=== PATIENT | female | born 1940 | race Caucasian/White ===

== ENCOUNTER 2016-10-30 10:59 | Outpatient (CLI) | payer MEDICARE, OTHER | END 2016-10-30 11:00 | disposition home or self-care (01) | DX: I25.10 Atherosclerotic heart disease of native coronary artery without angina pectoris (principal); R06.02 Shortness of breath; I51.7 Cardiomegaly ==

== ENCOUNTER 2016-11-20 19:05 | Outpatient (CLI) | payer MEDICARE, OTHER | END 2016-11-20 19:06 | disposition home or self-care (01) | DX: M79.605 Pain in left leg (principal); R60.0 Localized edema ==

== ENCOUNTER 2016-12-04 14:24 | Outpatient (CLI) | payer MEDICARE, OTHER ==
[2016-12-04 15:32] LABS: CREATININE 0.9 mg/dL (0.4-1.0); PHOSPHORUS 4.4 mg/dL (2.5-4.6); POTASSIUM 3.4 mmol/L (3.5-5.0)
== END 2016-12-04 14:25 | disposition home or self-care (01) ==
LOC: LAB 14:24
PROVIDERS: ATTEND Internal Medicine Cardiovascular Disease
DX: I10 Essential (primary) hypertension (principal)
CPT/HCPCS: 36415; 80069

== ENCOUNTER 2016-12-24 10:27 | Outpatient (CLI) | payer MEDICARE, OTHER ==
[2016-12-24 13:07] LABS: INR 1.1 (0.8-1.2); PT - PROTHROMBIN TIME 12.1 secs (9.9-12.6)
[2016-12-24 13:14] LABS: PARTIAL THROMBOPLASTIN TIME 29.5 secs (24.9-33.3)
[2016-12-24 13:22] LABS: BASOPHILS % (AUTO) 0.8 %; EOSINOPHILS # (AUTO) 0.2 10^3/uL (0.0-0.7); EOSINOPHILS % (AUTO) 4.2 %; HCT - HEMATOCRIT 42.9 % (37.0-47.0); HGB - HEMOGLOBIN 14.4 g/dL (12.0-16.0); LYMPHOCYTES # (AUTO) 1.1 10^3/uL (1.5-3.5); LYMPHOCYTES % (AUTO) 27.4 %; MEAN CORPUSCULAR HEMOGLOBIN 28.8 pg (27.0-31.0); MEAN CORPUSCULAR HGB CONC 33.6 g/dL (32.0-36.0); MEAN CORPUSCULAR VOLUME 85.7 fL (81.0-99.0); MEAN PLATELET VOLUME 11.6 fL (7.9-10.8); MONOCYTES # (AUTO) 0.5 10^3/uL (0.0-1.0); MONOCYTES % (AUTO) 11.3 %; NEUTROPHILS # (AUTO) 2.3 10^3/uL (1.5-6.6); NEUTROPHILS % (AUTO) 56.3 %; NUCLEATED RED BLOOD CELLS AUTO 0.1 /100WBC; RED BLOOD COUNT 5.01 10^6/uL (4.20-5.40); RED CELL DISTRIBUTION WIDTH 15.8 % (12.0-15.0); UNCORRECTED WHITE BLOOD COUNT 4.1 x10^3/uL; WHITE BLOOD COUNT 4.1 x10^3/uL (4.8-10.8)
[2016-12-24 13:33] LABS: CALCIUM 9.5 mg/dL (8.5-10.3); CREATININE 0.8 mg/dL (0.4-1.0); PHOSPHORUS 4.3 mg/dL (2.5-4.6); POTASSIUM 3.7 mmol/L (3.5-5.0)
== END 2016-12-24 10:28 | disposition home or self-care (01) ==
LOC: LAB.N 10:27
PROVIDERS: ATTEND Internal Medicine Cardiovascular Disease
DX: I10 Essential (primary) hypertension (principal); I25.118 Atherosclerotic heart disease of native coronary artery with other forms of angina pectoris; R06.02 Shortness of breath; E78.5 Hyperlipidemia, unspecified
CPT/HCPCS: 36415; 80069; 85025; 85610; 85730

== ENCOUNTER 2017-02-16 13:01 | Outpatient (CLI) | payer MEDICARE, OTHER | END 2017-02-16 13:02 | disposition home or self-care (01) | LOC: SC 13:01 | PROVIDERS: ATTEND Internal Medicine Pulmonary Disease | DX: G47.10 Hypersomnia, unspecified (principal); R06.83 Snoring; G47.8 Other sleep disorders | CPT/HCPCS: 99203; G0463; 99212 ==

== ENCOUNTER 2017-03-13 19:26 | Outpatient (CLI) | payer MEDICARE, OTHER | END 2017-03-13 19:27 | disposition home or self-care (01) | LOC: SC 19:26 | PROVIDERS: ATTEND Internal Medicine Pulmonary Disease | DX: G47.33 Obstructive sleep apnea (adult) (pediatric) (principal); G47.61 Periodic limb movement disorder | CPT/HCPCS: 95810 ==

== ENCOUNTER 2017-03-15 13:58 | Outpatient (CLI) | payer MEDICARE, OTHER ==
--- NOTE | 2017-03-16 17:22 | Mammography Report ---
DIGITAL SCREENING MAMMOGRAM: 03/15/2017 CLINICAL INDICATION: A 76-year-old with personal history of right breast cancer status post lumpecto my and radiation therapy, family history of breast cancer. COMPARISON: 02/2016, 12/2014, 12/2013, 12/2012, 10/2011, 10/2010, 08/2009. TECHNIQUE: Routine CC and MLO projections were obtained of the breasts. The breasts demonstrate scattered fibroglandular densities bilaterally. Postoperative and post-treat ment changes in the right breast are stable. Coarse and punctate, typically benign calcifications ar e present. No suspicious masses, clustered microcalcifications, or regions of architectural distorti on are identified. IMPRESSION: BENIGN FINDINGS. RECOMMENDATION: ROUTINE ANNUAL SCREENING UNLESS OTHERWISE CLINICALLY INDICATED. BIRADS CATEGORY: 2, BENIGN FINDINGS. STANDARD QUALIFYING STATEMENTS 1. This examination was reviewed with the aid of Computed-Aided Detection (CAD). 2. A negative or benign imaging report should not delay biopsy if clinically suspicious findings are present. Consider surgical consultation if warranted. More than 5% of cancers are not identified b y imaging. 3. Dense breasts may obscure an underlying neoplasm. :9 JOB #: [id number] EXT JOB #:[id number]
== END 2017-03-15 13:59 | disposition home or self-care (01) ==
LOC: DI 13:58
PROVIDERS: ATTEND Specialist
DX: Z12.31 Encounter for screening mammogram for malignant neoplasm of breast (principal); Z08 Encounter for follow-up examination after completed treatment for malignant neoplasm; Z85.3 Personal history of malignant neoplasm of breast; Z80.3 Family history of malignant neoplasm of breast
CPT/HCPCS: 77067

== ENCOUNTER 2017-04-06 14:26 | Outpatient (CLI) | payer MEDICARE, OTHER | END 2017-04-06 14:27 | disposition home or self-care (01) | LOC: SC 14:26 | PROVIDERS: ATTEND Internal Medicine Pulmonary Disease | DX: G47.33 Obstructive sleep apnea (adult) (pediatric) (principal) | CPT/HCPCS: 99213; G0463; 99212 ==

== ENCOUNTER 2017-05-21 22:22 | Outpatient (CLI) | payer MEDICARE, OTHER | END 2017-05-21 22:23 | disposition home or self-care (01) | LOC: SC 22:22 | PROVIDERS: ATTEND Internal Medicine Pulmonary Disease | DX: G47.33 Obstructive sleep apnea (adult) (pediatric) (principal); Z68.35 Body mass index [BMI] 35.0-35.9, adult | CPT/HCPCS: 95811 ==

== ENCOUNTER 2017-06-14 14:03 | Outpatient (CLI) | payer MEDICARE, OTHER | END 2017-06-14 14:04 | disposition home or self-care (01) | LOC: SC 14:03 | PROVIDERS: ATTEND Internal Medicine Pulmonary Disease | DX: G47.33 Obstructive sleep apnea (adult) (pediatric) (principal) | CPT/HCPCS: 99213; G0463; 99212 ==

== ENCOUNTER 2018-05-05 11:29 | Outpatient (CLI) | payer MEDICARE, OTHER ==
--- NOTE | 2018-05-06 10:22 | Mammography Report ---
Reason: SCREENING MAMMO Procedure Date: 05/05/2018 Accession Number: [id number] / [id number] Procedure: [facility] - Screening Mammo w/Jcarlos CPT Code: FULL RESULT: EXAM: Screening Mammo w/Jcarlos DATE: 05/05/2018 12:09 PM CLINICAL HISTORY: Status post right lumpectomy with radiation and chemotherapy TECHNIQUE: Bilateral CC and MLO views were obtained. COMPARISON: 03/15/2017, 03/10/2016, 01/07/2015, and 01/05/2014 FINDINGS: There are scattered fibroglandular densities. Surgical clips and postsurgical architectural distortion right breast as before. No suspicious masses, clustered microcalcifications, or new regions of architectural distortion are identified. IMPRESSION: Benign findings RECOMMENDATION: Routine annual screening unless otherwise clinically indicated. BIRADS CATEGORY 2: Benign findings STANDARD QUALIFYING STATEMENTS: 1. This examination was not reviewed with the aid of Computer-Aided Detection (CAD). 2. A negative or benign imaging report should not delay biopsy if clinically suspicious findings are present. Consider surgical consultation if warrented. More than 5% of cancers are not identified by imaging. 3. Dense breasts may obscure an underlying neoplasm. 4. This examination was reviewed with the aid of 3D breast imaging (tomosynthesis).
== END 2018-05-05 11:30 | disposition home or self-care (01) ==
LOC: DI 11:29
PROVIDERS: ATTEND Internal Medicine
DX: Z12.31 Encounter for screening mammogram for malignant neoplasm of breast (principal); Z08 Encounter for follow-up examination after completed treatment for malignant neoplasm; Z85.3 Personal history of malignant neoplasm of breast
CPT/HCPCS: 77063; 77067

== ENCOUNTER 2018-08-04 11:03 | Outpatient (CLI) | payer MEDICARE, OTHER | END 2018-08-04 11:04 | disposition home or self-care (01) | LOC: SC 11:03 | PROVIDERS: ATTEND Nurse Practitioner Family | DX: G47.33 Obstructive sleep apnea (adult) (pediatric) (principal); R03.0 Elevated blood-pressure reading, without diagnosis of hypertension | CPT/HCPCS: 99214; G0463; 99212 ==

== ENCOUNTER 2018-09-07 08:00 | Outpatient (CLI) | payer MEDICARE, OTHER ==
[2018-09-07 20:18] LABS: CALCIUM 9.1 mg/dL (8.5-10.3); CREATININE 0.9 mg/dL (0.4-1.0)
== END 2018-09-07 23:59 ==
LOC: LAB.N 08:00
PROVIDERS: ATTEND Internal Medicine Cardiovascular Disease
DX: I10 Essential (primary) hypertension (principal)
CPT/HCPCS: 36415; 80048

== ENCOUNTER 2018-12-01 06:25 | Day surgery (SDC) | payer MEDICARE, OTHER ==
[2018-12-01] MEDS ORDERED: PROPARACAINE 0.5% OPHTH DROPS 15 ML LEFTEYE ONE ×2 (06:48→08:01)
[2018-12-01] MEDS ORDERED: PHENYLEPHRINE 2.5% OPHTH 2 ML DROPS LEFTEYE ONE (06:48)
[2018-12-01] MEDS ORDERED: CYCLOPENTOLATE 1% OPHTH DROPS 2 ML LEFTEYE ONE (06:48)
[2018-12-01] MEDS ORDERED: LACTATED RINGERS 500 ML IV ONE (06:48)
[2018-12-01] MEDS ORDERED: KETOROLAC 0.45% OPHTH DROPS LEFTEYE ONE (06:48)
[2018-12-01] MEDS ORDERED: BRIMONIDINE 0.2% OPHTH DROPS 5 ML ONE (07:03)
[2018-12-01] MEDS ORDERED: TRIAMCIN/MOXIFLOX OPHTHALMIC 0.6 ML VIAL IO ONE (07:03)
[2018-12-01] MEDS ORDERED: TIMOLOL 0.5% OPHTH DROPS ONE (07:03)
[2018-12-01] MEDS ORDERED: VANCOMYCIN OPHTHALMI 8MG/0.8ML 8 MG/0.8 ML SYRINGE IO ONE (07:04)
--- NOTE | 2018-12-01 07:18 | ANESTHESIA ---
Pre-Anesthesia VS, & Labs - Diagnosis left nuclear sclerotic cataract - Procedure left extraction cataract with lens implant Vital Signs: Temp Pulse Resp BP Pulse Ox 36.9 C 66 18 149/69 H 96 12/01/18 06:40 12/01/18 06:40 12/01/18 06:40 12/01/18 06:40 12/01/18 06:40 Height 5 ft 3 in Weight (kg) 112 kg Body Mass Index 36.8 - NPO >8 hours - Is Patient ?: Not Applicable Home Medications and Allergies Home Medications: Ambulatory Orders Chlorthalidone 1 tab PO DAILY 12/01/18 Isosorbide Mononitrate ER [Imdur] 30 mg PO DAILY 12/01/18 Losartan [Cozaar] 50 mg PO DAILY 12/01/18 Cetirizine [ZyrTEC] 10 mg PO DAILY 12/19/12 Cholecalciferol (Vitamin D3) [Vitamin D] 1,000 unit PO DAILY 12/19/12 Pregabalin [Lyrica] 100 mg PO BID 12/19/12 Ascorbic Acid [Vitamin C] 1,000 mg PO DAILY 06/21/13 Calcium Crb,Cit/D3/Min34/Edi [Citracal + Bone Density Tablet] 1 each PO DAILY 06/21/13 Multivitamin [Multivitamins] 1 each PO DAILY 06/21/13 Atorvastatin Calcium [Lipitor] 40 mg PO DAILY 12/20/13 Krill Oil 500 mg PO DAILY 12/20/13 Solifenacin Succinate [Vesicare] 10 mg PO DAILY 12/20/13 Acetaminophen [Tylenol Extra Strength] 1 tab PO PRN PRN 06/23/17 Aspirin [Aspirin EC] 2 tab PO DAILY 06/23/17 Fluticasone [Flonase] 1 spray INH BID 06/23/17 Metoprolol Succinate [Toprol Xl] 1 tab PO DAILY 06/23/17 Metronidazole [Metrocream] 0 gm TOP BID 06/23/17 Pantoprazole Sodium 1 mg PO DAILY 06/23/17 Psyllium Seed (with Sugar) [Metamucil Powder] 2 tsp PO DAILY 06/23/17 Nitroglycerin 1 tab SL PRN PRN 03/23/18 Chlorthalidone 1 tab PO DAILY 12/01/18 Isosorbide Mononitrate ER [Imdur] 30 mg PO DAILY 12/01/18 Losartan [Cozaar] 50 mg PO DAILY 12/01/18 Allergies/Adverse Reactions: Allergies Allergy/AdvReac Type Severity Reaction Status Date / Time codeine [Codeine] AdvReac Nausea Verified 12/01/18 06:40 hydromorphone HCl * AdvReac Nausea Verified 12/01/18 06:40 [From Dilaudid] Anes History & Medical History - Anesthetic History Anesthesia Complications: reports: No previous complications Family history of Anesthesia Complications: Denies Family history of Malignant Hyperthermia: Denies - Medical History Cardiovascular: reports: Hypertension, High cholesterol, Coronary artery disease, [place] Pulmonary: reports: Sleep apnea, CPAP use Gastrointestinal: reports: Ulcers, Colon polyps, Other Urinary: reports: Incontinence Musculoskeletal: reports: Osteoarthritis, Fibromyalgia, Chronic back pain Endocrine/Autoimmune: reports: None Skin: reports: None - Surgical History General: Colonoscopy Eyes Ears Nose Throat (EENT): Tonsil/Adenoidectomy Urologic: Bladder surgery Gynecologic: Hysterectomy Orthopedic: Knee replacement, Carpal Tunnel surgery, Spine surgery, Other Dermatologic: Skin cancer surgery Exam General: Alert, Oriented x3, Cooperative, No acute distress Dental: Other (caps) Mouth Openin Fingerbreadth Neck Mobility: Reduced Mallampati classification: II Thyromental Distance: 4-6 cm Respiratory: Lungs clear, Normal breath sounds, No respiratory distress, No accessory muscle use Cardiovascular: Normal S1, Normal S2 Mental/Cognitive Status: Alert/Oriented X3, Normal for patient Plan Anesthesia Type: MAC Consent for Procedure(s) Verified and Reviewed: Yes Code Status: Attempt Resuscitation ASA classification: 2-Mild systemic disease Is this case an emergency?: No
[2018-12-01] MEDS ORDERED: MIDAZOLAM 2 MG/2 ML VIAL IVP ONE (08:00)
[2018-12-01] MEDS ORDERED: BRIMONIDINE 0.2% OPHTH DROPS 5 ML OPTH ONE (08:08)
[2018-12-01] MEDS ORDERED: EPINEPHrine 1 MG/ML AMP IVP ONE (08:08)
[2018-12-01] MEDS ORDERED: CHONDR SULF/HYALURONATE SYRINGE IO ONE (08:09)
[2018-12-01] MEDS ORDERED: BSS/LIDOCAINE/EPINEPHRINE 1 ML SYRINGE IO ONE (08:09)
[2018-12-01] MEDS ORDERED: TIMOLOL 0.5% OPHTH DROPS OPTH ONE (08:09)
[2018-12-01 08:30] VITALS: BP 144/57
--- NOTE | 2018-12-01 09:35 | PROCEDURE REPORT ---
DATE OF SERVICE: 12/01/2018 Physician: Alfred Nguyen MD PREOPERATIVE DIAGNOSIS: Visually significant cataract, left eye. This was her first cataract surgery. POSTOPERATIVE DIAGNOSIS: Visually significant cataract, left eye. PROCEDURE: Phacoemulsification with posterior chamber intraocular lens implant, left eye. SURGEON: Dr. Alfred Nguyen. ANESTHESIA: Monitored anesthesia care. COMPLICATIONS: None. OPERATIVE INDICATIONS: This is an 78-year-old woman with progressive vision loss in the left eye due to 2+ nuclear sclerotic cataract. Best corrected visual acuity was 20/40 with glare to 20/70 in the left eye. Indications for surgery were overall decrease in vision, difficulty seeing words on a computer screen , difficulty reading, difficulty seeing words, closed captions, or game scores on TV, difficulty seei ng street signs, difficulty driving at low light or at night, difficulty driving at night because of headlights from other vehicles, and difficulty with glare or bright lights in any situation. She was consented at length concerning risks and benefits of cataract surgery, after which she expressed a d esire to proceed with surgery. OPERATIVE PROCEDURE: Patient was taken into OR #3 and placed under monitored anesthesia care. A ausitn gical timeout was conducted, confirming correct patient, correct procedure, and correct surgical site . She was given topical anesthesia, then prepped and draped in the usual sterile fashion. The eye was entered at the 6 and 3 o'clock positions. Intracameral Shugarcaine was injected into the anterior chamber, followed by Viscoat. A continuous-tear curvilinear capsulorrhexis was performed. The nucleus was hydrodissected and phacoemulsified. The cortex was evacuated using automated infusi on and aspiration. Provisc was injected in the capsular bag, and an 18.5 diopter intraocular lens in serted in the bag. Approximately 0.8 mL of a mixture of triamcinolone, moxifloxacin, and vancomycin was injected subconjunctivally in the superior quadrant for infection and inflammation prophylaxis. I and A was used to evacuate the viscoelastic materials. The eye was inflated to physiologic pressur e using a balanced salt solution and found to be watertight. Patient was taken from the operating room in good condition and given postoperative instructions. TD: 12/01/2018 08:30
== END 2018-12-01 06:26 | disposition home or self-care (01) ==
LOC: SDS 06:25
PROVIDERS: ATTEND Ophthalmology
PROC: 08RK3JZ Replacement of Left Lens with Synthetic Substitute, Percutaneous Approach (ICD-10-PCS; principal; 2018-12-01 08:00)
DX: H25.12 Age-related nuclear cataract, left eye (principal); G47.33 Obstructive sleep apnea (adult) (pediatric); I10 Essential (primary) hypertension; E78.00 Pure hypercholesterolemia, unspecified
CPT/HCPCS: 66984; A9270; V2632

== ENCOUNTER 2019-01-12 09:19 | Day surgery (SDC) | payer MEDICARE, OTHER ==
[~2019-01-12 09:19] MED LIST: CYCLOPENTOLATE 1% OPHTH DROPS 2 ML ONE; KETOROLAC 0.45% OPHTH DROPS ONE; PHENYLEPHRINE 2.5% OPHTH 2 ML DROPS ONE; PROPARACAINE 0.5% OPHTH DROPS 15 ML ONE
[2019-01-12] MEDS ORDERED: PHENYLEPHRINE 2.5% OPHTH 2 ML DROPS RIGHTEYE ONE (09:52)
[2019-01-12] MEDS ORDERED: CYCLOPENTOLATE 1% OPHTH DROPS 2 ML RIGHTEYE ONE (09:52)
[2019-01-12] MEDS ORDERED: KETOROLAC 0.45% OPHTH DROPS RIGHTEYE ONE (09:52)
[2019-01-12] MEDS ORDERED: PROPARACAINE 0.5% OPHTH DROPS 15 ML RIGHTEYE ONE ×2 (09:52→10:55)
[2019-01-12] MEDS ORDERED: LACTATED RINGERS 500 ML IV ONE (09:54)
--- NOTE | 2019-01-12 10:43 | ANESTHESIA ---
Pre-Anesthesia VS, & Labs <Shay Tyler - Last Filed: 01/12/19 10:08> - NPO >8 hours - Is Patient ?: Not Applicable <Bassem Jacobs - Last Filed: 01/12/19 10:48> - Diagnosis R eye nuclear sclerotic cataract (Shay Tyler) - Procedure right extraction cataract with lens implant (Bassem Jacobs) Vital Signs: Temp Pulse Resp BP Pulse Ox 36.6 C 69 16 154/89 H 96 01/12/19 09:54 01/12/19 09:54 01/12/19 09:54 01/12/19 09:54 01/12/19 09:54 Height 5 ft 3 in Weight (kg) 114.4 kg Body Mass Index 36.8 Home Medications and Allergies <Shay Tyler - Last Filed: 01/12/19 10:08> <Bassem Jacobs - Last Filed: 01/12/19 10:48> Cetirizine [ZyrTEC] 10 mg PO DAILY 12/19/12 Cholecalciferol (Vitamin D3) [Vitamin D] 1,000 unit PO DAILY 12/19/12 Pregabalin [Lyrica] 100 mg PO BID 12/19/12 Ascorbic Acid [Vitamin C] 1,000 mg PO DAILY 06/21/13 Calcium Crb,Cit/D3/Min34/Edi [Citracal + Bone Density Tablet] 1 each PO DAILY 06/21/13 Multivitamin [Multivitamins] 1 each PO DAILY 06/21/13 Atorvastatin Calcium [Lipitor] 40 mg PO DAILY 12/20/13 Krill Oil 500 mg PO DAILY 12/20/13 Solifenacin Succinate [Vesicare] 10 mg PO DAILY 12/20/13 Acetaminophen [Tylenol Extra Strength] 1 tab PO PRN PRN 06/23/17 Aspirin [Aspirin EC] 2 tab PO DAILY 06/23/17 Fluticasone [Flonase] 1 spray INH BID 06/23/17 Metoprolol Succinate [Toprol Xl] 1 tab PO DAILY 06/23/17 Metronidazole [Metrocream] 0 gm TOP BID 06/23/17 Pantoprazole Sodium 1 mg PO DAILY 06/23/17 Psyllium Seed (with Sugar) [Metamucil Powder] 2 tsp PO DAILY 06/23/17 Nitroglycerin 1 tab SL PRN PRN 03/23/18 Chlorthalidone 1 tab PO DAILY 12/01/18 Isosorbide Mononitrate ER [Imdur] 30 mg PO DAILY 12/01/18 Losartan [Cozaar] 50 mg PO DAILY 12/01/18 Allergies/Adverse Reactions: Allergies Allergy/AdvReac Type Severity Reaction Status Date / Time codeine [Codeine] AdvReac Nausea Verified 12/01/18 06:40 hydromorphone HCl * AdvReac Nausea Verified 12/01/18 06:40 [From Dilaudid] Anes History & Medical History - Medical History Cardiovascular: reports: Hypertension, High cholesterol, Coronary artery disease Pulmonary: reports: Shortness of breath, Sleep apnea Gastrointestinal: reports: Ulcers, Colon polyps, Other Urinary: reports: Incontinence Musculoskeletal: reports: Osteoarthritis Endocrine/Autoimmune: reports: None Skin: reports: Rosacea - Surgical History General: Colonoscopy, EGD Eyes Ears Nose Throat (EENT): Cataracts Cardiothoracic: Coronary stent, Other Urologic: Bladder surgery Gynecologic: Hysterectomy Neurologic: Other Orthopedic: Knee replacement Dermatologic: Skin cancer surgery <Shay Tyler - Last Filed: 01/12/19 10:08> - Anesthetic History Anesthesia Complications: reports: No previous complications Family history of Anesthesia Complications: Denies Family history of Malignant Hyperthermia: Denies <Bassem Jacobs - Last Filed: 01/12/19 10:48> Exam General: Alert, Oriented x3, Cooperative, No acute distress Dental: Other (caps) Mouth Openin Fingerbreadth Neck Mobility: Reduced Mallampati classification: III Thyromental Distance: 4-6 cm Respiratory: Lungs clear, Normal breath sounds, No respiratory distress, No accessory muscle use Cardiovascular: Normal S1, Normal S2 <Bassem Jacobs - Last Filed: 01/12/19 10:48> Plan Anesthesia Type: MAC Consent for Procedure(s) Verified and Reviewed: Yes Code Status: Attempt Resuscitation ASA classification: 3-Severe systemic disease Is this case an emergency?: No <Bassem Jacobs - Last Filed: 01/12/19 10:48>
[2019-01-12] MEDS ORDERED: BRIMONIDINE 0.2% OPHTH DROPS 5 ML OPTH ONE (10:54)
[2019-01-12] MEDS ORDERED: EPINEPHrine 1 MG/ML AMP IVP ONE (10:54)
[2019-01-12] MEDS ORDERED: TIMOLOL 0.5% OPHTH DROPS OPTH ONE (10:55)
[2019-01-12] MEDS ORDERED: CHONDR SULF/HYALURONATE SYRINGE IO ONE (10:55)
[2019-01-12] MEDS ORDERED: BSS/LIDOCAINE/EPINEPHRINE 1 ML SYRINGE IO ONE (10:55)
[2019-01-12] MEDS ORDERED: VANCOMYCIN OPHTHALMI 8MG/0.8ML 8 MG/0.8 ML SYRINGE IO ONE ×2 (10:56→11:13)
[2019-01-12] MEDS ORDERED: TRIAMCIN/MOXIFLOX OPHTHALMIC 0.6 ML VIAL IO ONE ×2 (10:56→11:13)
[2019-01-12] MEDS ORDERED: MIDAZOLAM 2 MG/2 ML VIAL IVP ONE (10:57)
[2019-01-12] MEDS ORDERED: EPINEPHrine 1 MG/ML AMP ONE (11:13)
[2019-01-12] MEDS ORDERED: BSS/LIDOCAINE/EPINEPHRINE 1 ML SYRINGE ONE (11:13)
[2019-01-12] MEDS ORDERED: BRIMONIDINE 0.2% OPHTH DROPS 5 ML ONE (11:13)
[2019-01-12] MEDS ORDERED: TIMOLOL 0.5% OPHTH DROPS ONE (11:13)
[2019-01-12 11:25] VITALS: BP 99/57
--- NOTE | 2019-01-12 12:05 | OPERATIVE REPORT ---
DATE OF SERVICE: 01/12/2019 Physician: Alfred Nguyen MD PREOPERATIVE DIAGNOSIS: Visually significant cataract, right eye. Cataract surgery was performed on the left eye in 12/01/2018. POSTOPERATIVE DIAGNOSIS: Visually significant cataract, right eye. Cataract surgery was performed on the left eye in 12/01/2018. PROCEDURE: Phacoemulsification with posterior chamber intraocular lens implant, right eye. SURGEON: Alfred Nguyen MD ANESTHESIA: Monitored anesthesia care. COMPLICATIONS: None. OPERATIVE INDICATIONS: This is an 78-year-old woman with progressive vision loss in the right eye due to 2+ nuclear sclerotic cataract. Best corrected visual acuity was 20/25, with glare to 20/60 in the right eye. Indications for surgery were overall decrease in vision, difficulty seeing words on the computer screen, difficulty reading, difficulty seeing words, closed caption or game scores on TV, difficulty seeing street signs including driving in low light or at night, difficulty driving at night because of headlights from other vehicles, and difficulty with glare or bright lights in any situation. She was consented at length concerning risks and benefits of cataract surgery, after which she expressed a desire to proceed with surgery. OPERATIVE PROCEDURE: Patient was taken into OR #3 and placed under monitored anesthesia care. A surgical timeout was conducted confirming correct patient, correct procedure, and correct surgical site. She was given topical anesthesia, and then prepped and draped in the usual sterile fashion. The eye was entered at the 12 and 9-o'clock positions. Intracameral Shugarcaine was injected into the anterior chamber, followed by Viscoat. A continuous-tear curvilinear capsulorrhexis was performed. The nucleus was hydrodissected and phacoemulsified. The cortex was evacuated using automated infusion and aspiration. Provisc was injected in the capsular bag, and a 17.5-diopter intraocular lens was inserted into the bag. Approximately 0.8 mL of a mixture of triamcinolone, moxifloxacin, and vancomycin was injected subconjunctivally in the superior quadrant for infection and inflammation prophylaxis. I and A was used to evacuate the viscoelastic materials. The eye was inflated to physiologic pressure using balanced salt solution and found to be watertight. Patient was taken from the operating room in good condition and given postoperative instructions. TD: 01/12/2019 11:11 ESTELA
== END 2019-01-12 09:20 | disposition home or self-care (01) ==
LOC: SDS 09:19
PROVIDERS: ATTEND Ophthalmology
PROC: 08RJ3JZ Replacement of Right Lens with Synthetic Substitute, Percutaneous Approach (ICD-10-PCS; principal; 2019-01-12 11:00)
DX: H25.11 Age-related nuclear cataract, right eye (principal); I10 Essential (primary) hypertension; G47.30 Sleep apnea, unspecified; E78.00 Pure hypercholesterolemia, unspecified; I25.10 Atherosclerotic heart disease of native coronary artery without angina pectoris; R32 Unspecified urinary incontinence; Z79.82 Long term (current) use of aspirin; Z87.11 Personal history of peptic ulcer disease; Z95.5 Presence of coronary angioplasty implant and graft; Z96.659 Presence of unspecified artificial knee joint; Z85.828 Personal history of other malignant neoplasm of skin; Z95.1 Presence of aortocoronary bypass graft
CPT/HCPCS: 66984; A9270; J3490; V2632

== ENCOUNTER 2019-05-11 16:15 | Outpatient (CLI) | payer MEDICARE, OTHER ==
--- NOTE | 2019-05-12 11:10 | Mammography Report ---
Reason: SCREENING MAMMO Procedure Date: 05/11/2019 Accession Number: [id number] / [id number] Procedure: [facility] - Screening Mammo w/Jcarlos CPT Code: FULL RESULT: EXAM: Screening Mammo w/Jcarlos DATE: 05/11/2019 4:46 PM CLINICAL HISTORY: Personal history of right breast cancer. For routine screening. TECHNIQUE: (B) - Bilateral CC and MLO views were obtained. COMPARISON: 05/05/2018, 03/15/2017, 03/10/2006, 01/07/2015, 01/05/2014, 12/28/2012 and 11/16/2011 PARENCHYMAL PATTERN: (A) - The breasts demonstrate scattered fibroglandular densities bilaterally. FINDINGS: No significant interval change. Post therapeutic changes right breast stable. There are no new suspicious masses, calcifications, or areas of distortion. IMPRESSION: Benign findings. BI-RADS category 2. RECOMMENDATION: (ANNUAL) - Recommend routine annual screening mammography. BI-RADS CATEGORY: (2) - Benign Findings. STANDARD QUALIFYING STATEMENTS: 1. This examination was not reviewed with the aid of Computer-Aided Detection (CAD). 2. A negative or benign imaging report should not preclude biopsy if clinically suspicious findings are present. 3. Dense breasts may obscure an underlying neoplasm. 4. This examination was reviewed with the aid of 3D breast imaging (tomosynthesis).
== END 2019-05-11 16:16 | disposition home or self-care (01) ==
LOC: DI 16:15
DX: Z12.31 Encounter for screening mammogram for malignant neoplasm of breast (principal); Z85.3 Personal history of malignant neoplasm of breast
CPT/HCPCS: 77063; 77067

== ENCOUNTER 2020-06-14 11:41 | Outpatient (CLI) | payer MEDICARE, OTHER ==
--- NOTE | 2020-06-17 13:22 | Mammography Report ---
BILATERAL DIGITAL SCREENING MAMMOGRAM 3D/2D: 06/14/2020 CLINICAL: Routine screening. Comparison is made to exams dated: 05/11/2019 mammogram, 05/05/2018 mammogram, and 05/15/2017 mammog [facility]. There are scattered fibroglandular elements in both breasts. There are benign post operative findings in the right breast. No significant masses, calcifications, or other findings are seen in either breast. There has been no significant interval change. IMPRESSION: BENIGN There is no mammographic evidence of malignancy. A 1 year screening mammogram is recommended. This exam was interpreted at Station ID: [id number]. NOTE: For mammograms, a report in lay terms will be sent to the patient. Approximately 15% of breast malignancies will not be visualized mammographically. In the management of a palpable breast mass, a negative mammogram must not discourage biopsy of a clinically suspicious lesion. Electronically Signed By: Uzair lerma/[place]:06/14/2020 14:05:41 ACR BI-RADS Category 2: Benign Finding(s) 3342F PARENCHYMAL PATTERN: (A) - The breast(s) demonstrate(s) scattered fibroglandular densities. BI-RADS CATEGORY: (2) - 2 RECOMMENDATION: (ANNUAL) - Recommend routine annual screening mammography. [id number] 1 year screening LATERALITY: (B)
--- NOTE | 2020-06-17 20:51 | HEMATOLOGY FOLLOW UP ---
Hematology Follow-Up: CC/HPI: This is a 80 y/o F with past medical history significant for Stage I right-sided breast cancer status post adjuvant treatment in 2014, MALT and gastric ulcer from 1998 with intestinal metaplasia from 2014, who presents for follow-up visit today Since last seen patient had initially been scheduled for hip replacement of her left hip and was told to lose weight however due to the Covid pandemic has unfortunately not been able to lose weight or get any sort of surgical intervention. She has tried injections to her left hip but these have not been helpful She has had a couple of squamous cell carcinomas removed from her skin with no incident, and she denies any GI symptoms specifically no acid reflux symptoms or nausea or vomiting at this time Most recent EGD from 02/2019 was negative for any mucosa-associated lymphoid tissue however with positive intestinal metaplasia, and a colonoscopy done at the same time showed tubular adenoma She denies any rectal bleeding, or worsening fatigue no bright red blood per rectum or melena at this time Review of Systems: All other systems negative. Past Medical/Surgical/Family/Social History: Reviewed from note dated [05/17/2019 ] and remains unchanged today. ONCOLOGY HISTORY: 1. Stage I (T1 N0 M0) right-sided breast cancer hormone positive -s/p lumpectomy 2009 -completed 5 years AI in 2014 -expectant management yearly with routine mammogram 2. abnormal colonoscopy with nonmalignant polyps from 2017 -colonoscopy 02/2019 negative for acute abnormality 3. history of MALT and gastric ulcer since 1998 -multiple biopsies previously from 2002 and 2014 with persistent low grade MALT -EGD 02/2019 negative for MALG but positive for intestinal metaplasia Physical Examination: General: No acute distress. Vitals per chart. HEENT: No sclera icterus. Oropharynx clear. Neck: No thyromegaly. Lymph nodes: No cervical, supraclavicular, axillary, epitrochlear, or inguinal node adenopathy. Lungs: Clear to auscultation and percussion. Heart: Regular rate and rhythm, no gallops or rubs heard. Breasts: Right breast with chronic induration and indentation at site of previous lumpectomy, no erythema or tenderness, no bilateral lymphadenopathy observed Abdomen: Soft, nontender, normal bowel sounds. No palpable hepatosplenomegaly. No ascites appreciated. Extremities: No cyanosis, clubbing; legs no pitting edema. Skeletal: Nontender to percussion and palpation over spine, ribs, costovertebral angle. Skin: No petechiae, or purpura. No Rash. Neuro: Alert, oriented, appropriate, able to participate in discussion and decisions. Cranial nerves 3, 4, 6, 7, 9, 10, 11, and 12 intact. Gait normal. LAB/PATHOLOGY REVIEW: Available labs reviewed. IMAGING: Available imaging reviewed. ASSESSMENT AND PLAN: 1. History of stage I R breast cancer, ER/CO posiutive-remains on expectant management s/p completion of joycelyn djuvant therapy in 2015 -yearly mammography 04/2020 -yearly breast exam with mammo 2. distant history of MALT lymphoma -follow up with GI 3. intestinal metaplasia --concern for malignant potential , Would recommend follow-up EGD, currently due for this year however delayed due to Covid -follow up with GI, For repeat EGD -We will also refer back to GI for routine colonoscopy follow-up given tubular adenomas found on previous colonoscopy 1 year ago 4. Osteoporosis-DEXA scan from 05/2020 reveals osteoporosis likely multifactorial in the setting of previous aromatase inhibitor use as well as postmenopausal status. Discussed mitigation of risk with bisphosphonate therapy however discussed possibility of osteonecrosis of the jaw which although relatively rare in patients with good dentition may be at higher risk for recurrence in patients with dental issues -Patient instructed to follow-up with PCP for further consideration of bisphosphonate therapy -Patient instructed to follow-up with dentist for further evaluation of additional dental work and clearance for Zometa therapy if indicated 5. Osteoarthritic hip pain-likely secondary to chronic osteoarthritis of right hip -Recommend diet exercise weight loss and follow-up with orthopedics .Follow-up plan: [1 year with repeat imaging ] TIME SPENT: [25 ] minutes. > 50% in patient/family counseling and coordination of care regarding items discussed in history of present illness, assessment and plan. Clinical Data: Allergies codeine [Codeine] Adverse Reaction (Verified 05/18/19 13:07) Nausea hydromorphone HCl * [From Dilaudid] Adverse Reaction (Verified 05/18/19 13:07) Nausea Home Medications Cetirizine [ZyrTEC] 10 mg PO DAILY 12/19/12 [History Last Taken 01/11/19] Cholecalciferol (Vitamin D3) [Vitamin D] 1,000 unit PO DAILY 12/19/12 [History Last Taken 01/11/19] Pregabalin [Lyrica] 100 mg PO BID 12/19/12 [History Last Taken 01/12/19 07:10] Ascorbic Acid [Vitamin C] 1,000 mg PO DAILY 06/21/13 [History Last Taken 01/11/19] Calcium Crb,Cit/D3/Min34/Edi [Citracal + Bone Density Tablet] 1 each PO DAILY 06/21/13 [History Last Taken 01/11/19] Multivitamin [Multivitamins] 1 each PO DAILY 06/21/13 [History Last Taken 01/11/19] Atorvastatin Calcium [Lipitor] 40 mg PO DAILY 12/20/13 [History Last Taken 01/11/19] Krill Oil 500 mg PO DAILY 12/20/13 [History Last Taken 01/11/19] Solifenacin Succinate [Vesicare] 10 mg PO DAILY 12/20/13 [History Last Taken 01/11/19] Acetaminophen [Tylenol Extra Strength] 1 tab PO PRN PRN 06/23/17 [History Last Taken 01/11/19] Aspirin [Aspirin EC] 2 tab PO DAILY 06/23/17 [History Last Taken 01/11/19] Fluticasone [Flonase] 1 spray INH BID 06/23/17 [History Last Taken 01/12/19 07:00] Metoprolol Succinate [Toprol Xl] 1 tab PO DAILY 06/23/17 [History Last Taken 01/12/19 07:00] Metronidazole [Metrocream] 0 gm TOP BID 06/23/17 [History Last Taken 01/11/19] Pantoprazole Sodium 1 mg PO DAILY 06/23/17 [History Last Taken 01/12/19 07:10] Psyllium Seed (with Sugar) [Metamucil Powder] 2 tsp PO DAILY 06/23/17 [History Last Taken 01/10/19] Nitroglycerin 1 tab SL PRN PRN 03/23/18 [History Last Taken Unknown] Chlorthalidone 1 tab PO DAILY 12/01/18 [History Last Taken 01/12/19] Isosorbide Mononitrate ER [Imdur] 30 mg PO DAILY 12/01/18 [History Last Taken 01/12/19 07:00] Losartan [Cozaar] 50 mg PO DAILY 12/01/18 [History Last Taken 01/12/19 07:00]
== END 2020-06-14 11:42 | disposition home or self-care (01) ==
LOC: DI 11:41
PROVIDERS: ATTEND Internal Medicine
DX: Z12.31 Encounter for screening mammogram for malignant neoplasm of breast (principal); Z85.3 Personal history of malignant neoplasm of breast

== ENCOUNTER 2020-06-14 11:43 | Outpatient (CLI) | payer MEDICARE, OTHER ==
--- NOTE | 2020-06-14 14:01 | DEXA Report ---
PROCEDURE: Dexa Spine and/or Hip INDICATIONS: POSTMENOPAUSAL TECHNIQUE: Dual energy x-ray absorptiometry (DXA) was performed on a [facility]. Regions measur ed are the AP Spine, femoral neck, and if needed forearm. COMPARISON: None. FINDINGS: Lumbar Spine: Bone Mineral Density 1.734 g/cm/cm,T score 4.6, Right Hip: Bone Mineral Density 0.990 g/cm/cm,T score -0.1, Right Femoral Neck: Bone Mineral Density 0.690 g/cm/cm, T score -2.5, Left forearm: Bone Mineral Density 0.568 g/cm/cm, T score -3.5, (T score greater or equal to -1.0: NORMAL) (T score from -1.1 to -2.4: OSTEOPENIA) (T score less than or equal to -2.5 to: OSTEOPOROSIS) Impression: Osteoporosis. Patients with diagnosis of osteoporosis or osteopenia should have regular bone mineral density assess ment. For those eligible for Medicare, routine testing is allowed once every 2 years. Testing frequ ency can be increased for patients who have rapidly progressing disease or for those who are receivin g medical therapy to restore bone mass. Reviewed by: Karthikeyan Wise MD on 06/14/2020 1:59 PM PST Approved by: Karthikeyan Wise MD on 06/14/2020 1:59 PM PST Station ID: [id number]
== END 2020-06-14 11:44 | disposition home or self-care (01) ==
LOC: DI 11:43
PROVIDERS: ATTEND Internal Medicine
DX: M81.0 Age-related osteoporosis without current pathological fracture (principal)
CPT/HCPCS: 77080; 77081

== ENCOUNTER 2020-08-14 11:00 | Outpatient (CLI) | payer MEDICARE, OTHER | END 2020-08-14 23:59 | disposition home or self-care (01) | LOC: COV 11:00 | PROVIDERS: ATTEND Internal Medicine Gastroenterology | DX: Z01.812 Encounter for preprocedural laboratory examination (principal); Z20.822 Contact with and (suspected) exposure to COVID-19 ==

== ENCOUNTER 2021-05-23 14:04 | Outpatient (CLI) | payer MEDICARE, OTHER ==
[2021-05-23 14:53] VITALS: BP 128/63
--- NOTE | 2021-05-23 14:53 | SLEEP CARE CONSULTATION ---
Information from patient questionnaire entered by Devan Cueva MA. I have reviewed and concur with the information entered by Devan Cueva MA. This document represents the service I personally performed and the decisions made by , Wendi Reardon ARNP. History of Present Illness Service Date and Time: 05/23/2021 1404 Previous diagnosis: Moderate, Obstructive Sleep Apnea-Hypopnea Syndrome AHI: 18.6 Reason for follow up: annual Equipment type: CPAP Equipment obtained from: [employer] (getting supplies as needed) Mask style: Nasal Backup mask available: Yes (other mask) Last cushion change: over a month HPI additional information: SUE PENA was diagnosed to have moderate, AHI 18.6, obstructive sleep apnea- hypopnea syndrome and returned today with spouse for CPAP therapy annual follow- up. CPAP Compliance Data - Data Reviewed with Patient Average duration of nightly device use: 9 hours 4 minutes Compliance rate %: 99.4 Current pressure setting (cmH2O): 4-7 Humidity settin Heated hose settin Average residual AHI: 5.3 Average large leak: 23 minutes 51 seconds Subjective Patient concerns: reports: mask leak noise (holds on to the tip to quiet and then changes out mask), dry mouth, nose, throat (sometimes; uses Biotene when going to bed). denies: aerophagia, mask discomfort, air blowing in eyes, condensation in mask/hose, nasal congestion, epistaxis, other Observed to snore while using device: No Current pressure setting perceived as: comfortable On therapy, patient: reports: sleeping better, awakening more refreshed, being more awake and alert during the day, more rested overall. denies: drowsiness while driving Current [place] Sleepiness Scale score: 9 Allergies and Home Medications Home medication list reviewed: Yes Allergy and home medication list: generic Boniva Venlafaxine ER 75 mg Review of Systems Review of systems same as previous: No (Osteoporosis; Needs L hip replacement after losing weight) Physical Exam Vital signs obtained and entered by: Anay PEREIRA Blood Pressure: 128/63 (left) Cuff size: wrist Heart Rate: 81 O2 Saturation: 98 (mask) Height: 5 ft 3 in Weight: 243 lb (without boots) Body Mass Index: 43.0 BMI Classification: Morbidly Obese Impression and Plan 1. Obstructive Sleep Apnea-Hypopnea Syndrome, moderate, with good treatment compliance and fair apnea control. On CPAP therapy, the patient has better sleep quality and is more rested overall. She has significant improvement of her sleep apnea with a minimal elevation of her AHI. No adjustments of her pressures needed. Patient has already registered their device for the recall. Patient denies any black particles seen in machine or hoses, any unusual odors coming from device. Patient has not experienced any physical symptoms such as upper airway irritation, headache, skin or eye irritation, asthma, nausea/vomiting, difficulty breathing or chest pain. If patient is not able to sleep due to waking up choking, gasping for air or other respiratory distress that they may decide to continue using it until it is either replaced or repaired. Patient voiced understanding and agreement with plan. Patient's apnea severity and rationale for treatment to reduce apnea, improve sleep quality and reduce cardiovascular and cerebrovascular events was reviewed. I also reviewed the benefit of consistent device use of CPAP for hypertension and cardiac disease. Patient was encouraged to lose weight for their overall health and to reduce apneas. * Continue auto CPAP pressure at 4-7 cmH2O * Notify me if snoring with mask or feeling that the pressure is too much or too little * Continue to try to lose weight * Call this office if any problems using CPAP * Return for follow up in 1 year, or sooner if concerns arise Counseling Topics: Weight loss health impact Visit Type: In Office Time Spent with Patient (minutes): 20 Provider Statement: I spent 100% of the Face to Face Visit with the patient with greater than 50% spent counseling the patient and coordination of care.
== END 2021-05-23 14:05 | disposition home or self-care (01) ==
LOC: SC 14:04
PROVIDERS: ATTEND Nurse Practitioner Family
DX: G47.33 Obstructive sleep apnea (adult) (pediatric) (principal); E66.01 Morbid (severe) obesity due to excess calories; Z68.41 Body mass index [BMI] 40.0-44.9, adult
CPT/HCPCS: 99213; G0463; 99212

== ENCOUNTER 2021-06-16 13:55 | Outpatient (CLI) | payer MEDICARE, OTHER ==
--- NOTE | 2021-06-17 08:19 | Mammography Report ---
BILATERAL DIGITAL SCREENING MAMMOGRAM 3D/2D: 06/16/2021 CLINICAL: Routine screening. Personal history of right breast cancer. Comparison is made to exams dated: 06/14/2020 mammogram, 05/11/2019 mammogram, 05/05/2018 mammogram, 05/15/2017 mammogram, 03/10/2016 mammogram, and 01/07/2015 mammogram - [facility]. There are scattered fibroglandular elements in both breasts. There are benign post operative findings in the right breast. No significant masses, calcifications, or other findings are seen in either breast. There has been no significant interval change. IMPRESSION: BENIGN There is no mammographic evidence of malignancy. A 1 year screening mammogram is recommended. This exam was interpreted at Station ID: [id number]. NOTE: For mammograms, a report in lay terms will be sent to the patient. Approximately 15% of breast malignancies will not be visualized mammographically. In the management of a palpable breast mass, a negative mammogram must not discourage biopsy of a clinically suspicious lesion. Electronically Signed By: Jonas Boateng M.D. [email or web address]:06/16/2021 15:19:11 ACR BI-RADS Category 2: Benign Finding(s) 3342F PARENCHYMAL PATTERN: (A) - The breast(s) demonstrate(s) scattered fibroglandular densities. BI-RADS CATEGORY: (2) - 2 RECOMMENDATION: (ANNUAL) - Recommend routine annual screening mammography. [id number] 1 year screening LATERALITY: (B)
== END 2021-06-16 13:56 | disposition home or self-care (01) ==
LOC: DI 13:55
DX: Z12.31 Encounter for screening mammogram for malignant neoplasm of breast (principal); Z85.3 Personal history of malignant neoplasm of breast

== ENCOUNTER 2021-09-18 14:49 | Outpatient (CLI) | payer MEDICARE, OTHER ==
--- NOTE | 2021-09-19 16:14 | Ultrasound Report ---
PROCEDURE: Ankle Brachial Index INDICATIONS: PERIPHERAL VASCULAR DISEASE TECHNIQUE: Ankle-brachial indices were obtained bilaterally and recorded. COMPARISONS: None. FINDINGS: Right ankle brachial index (IBRAHIMA): 1.17 Left ankle brachial index (IBRAHIMA): 1.10 Healing potential: Ankle pressures >55 mm Hg in non-diabetics and >80 mm Hg in diabetics are likely to achieve primary h ealing of ischemic foot ulcers. Toe pressures >30 mm Hg are likely to achieve primary healing of ischemic foot ulcers, toe or transme tatarsal amputations. IMPRESSION: Normal ankle-brachial index bilaterally. Reviewed by: Karthikeyan Wise MD on 09/19/2021 4:13 PM PST Approved by: Karthikeyan Wise MD on 09/19/2021 4:13 PM PST Station ID: [id number]
== END 2021-09-18 14:50 | disposition home or self-care (01) ==
LOC: DI 14:49
PROVIDERS: ATTEND Family Medicine
DX: I73.9 Peripheral vascular disease, unspecified (principal)
CPT/HCPCS: 93922

== ENCOUNTER 2022-05-27 13:06 | Outpatient (CLI) | payer MEDICARE, OTHER ==
--- NOTE | 2022-05-27 13:55 | SLEEP CARE CONSULTATION ---
Information from patient questionnaire entered by Davey Treviño. I have reviewed and concur with the information entered by Davey Treviño. This document represents the service I personally performed and the decisions made by me, Wendi Reardon ARNP. History of Present Illness Service Date and Time: 05/27/2022 1306 Previous diagnosis: Moderate, Obstructive Sleep Apnea-Hypopnea Syndrome AHI: 18.6 Reason for follow up: annual (LAST SEEN 05/2021) Equipment type: CPAP ([facility]) Equipment obtained from: [employer] (getting supplies as needed) Mask style: Nasal Backup mask available: Yes (old mask) Last cushion change: Sundays Prior sleep studies: Yes Year and Where: 2016 [facility] HPI additional information: SUE PENA was diagnosed to have moderate, AHI 18.6, obstructive sleep apnea- hypopnea syndrome and returned today with spouse for CPAP therapy annual follow- up. CPAP Compliance Data - Data Reviewed with Patient Average duration of nightly device use: 8 HRS, 27 MIN, 55 SEC Compliance rate %: 98.9 (11/25/2021-05/23/2022; 179/180 days used) Current pressure setting (cmH2O): 4-7 (90% 7 cmH20) Average residual AHI: 4.9 Central apnea: 0.1 Obstructive apnea: 0.8 Average large leak: 30 secs Subjective Patient concerns: reports: mask discomfort, dry mouth, nose, throat (using biotene gel at night; helps), other (back of head strap not comfortable). denies: aerophagia, air blowing in eyes, mask leak noise, condensation in mask/hose, nasal congestion, epistaxis Observed to snore while using device: No Current pressure setting perceived as: comfortable On therapy, patient: reports: sleeping better, awakening more refreshed, being more awake and alert during the day, more rested overall. denies: drowsiness while driving Initial [place] Sleepiness Scale score: 8 (05/27/2022) Current [place] Sleepiness Scale score: 8 Allergies and Home Medications Drug allergies reviewed: Yes (as listed in EMR) Home medication list reviewed: Yes (Boniva, Venlafaxine ER 75 mg) Review of Systems Review of systems same as previous: Yes (need L hip replacement) Physical Exam Vital signs obtained and entered by: DAVEY Ramos MA Blood Pressure: 128/74 (LEFT ARM) Cuff size: long Heart Rate: 63 O2 Saturation: 98 Height: 5 ft 3 in Weight: 256 lb Body Mass Index: 45.3 BMI Classification: Morbidly Obese Impression and Plan 1. Obstructive Sleep Apnea-Hypopnea Syndrome, moderate, with good treatment compliance and good apnea control. On CPAP therapy, the patient has better sleep quality and is more rested overall. Patient has significant improvement of their sleep apnea and are satisfied with current CPAP therapy. The patients pressure will be changed to autoCPAP 5-8 cmH20 For elevation of residual AHI. Patient advised to contact me if pressure change is uncomfortable so that it can be adjusted. Goals for apnea control discussed. Patient's apnea severity and rationale for treatment to reduce apnea, improve sleep quality and reduce cardiovascular and cerebrovascular events was reviewed. I also reviewed the benefit of consistent device use of CPAP for hypertension and cardiac disease. 2. Obesity, unspecified. Currently patients BMI is 45.3. Obesity increases the risk of apnea, CPAP pressure requirements and overall health risks especially cardiovascular and diabetes. Thus patient is advised to lose weight. * Change auto CPAP pressure to 5-8 cmH2O * Notify me if snoring with mask or feeling that the pressure is too much or too little * Attempt to lose weight * Call this office if any problems using CPAP * Return for follow up in 1 year, or sooner if concerns arise Counseling Topics: Spare mask, Weight loss health impact Visit Type: In Office Time Spent with Patient (minutes): 21 Provider Statement: I spent 100% of the Face to Face Visit with the patient with greater than 50% spent counseling the patient and coordination of care.
[2022-05-27 13:56] VITALS: BP 128/74
== END 2022-05-27 13:07 | disposition home or self-care (01) ==
LOC: SC 13:06
PROVIDERS: ATTEND Nurse Practitioner Family
DX: G47.33 Obstructive sleep apnea (adult) (pediatric) (principal); E66.01 Morbid (severe) obesity due to excess calories; Z68.42 Body mass index [BMI] 45.0-49.9, adult
CPT/HCPCS: 99213; G0463; 99212

== ENCOUNTER 2022-06-07 23:25 | Outpatient (CLI) | payer MEDICARE, OTHER | END 2022-06-07 23:26 | disposition EMS.NT | LOC: EMS 23:25 | DX: M79.89 Other specified soft tissue disorders (principal) ==

== ENCOUNTER 2022-06-08 00:30 | Emergency (ER) | payer MEDICARE, OTHER ==
--- NOTE | 2022-06-08 03:58 | ED Physician Documentation ---
History of Present Illness - Stated complaint Stated Complaint: L SWOLLEN LEG - Chief complaint Chief Complaint: Ext Problem - History obtained from History obtained from: Patient - History of Present Illness Timing: How many days ago (2-3) Pain level now: 0 - Additonal information Additional information: c/o waxing and waning LLE swelling x 2 months , past 2 days has become more swollen and now erythematous . Denies chest pain, denies dyspnea. Denies injury. Has not had these symptoms before. Review of Systems Constitutional: denies: Fever, Chills, Sweats Cardiac: denies: Chest pain / pressure Respiratory: denies: Dyspnea Skin: reports: Rash Musculoskeletal: reports: Extremity swelling. denies: Extremity pain PD PAST MEDICAL HISTORY - Past Medical History Past Medical History: Yes Cardiovascular: Hypertension, High cholesterol, Coronary artery disease Respiratory: Shortness of breath, Sleep apnea Endocrine/Autoimmune: None GI: Ulcers, Colon polyps, Other : Incontinence HEENT: Other Psych: None Musculoskeletal: Osteoarthritis Derm: Rosacea - Past Surgical History Past Surgical History: Yes General: Colonoscopy, EGD Ortho: Knee replacement /[employer]CHNOLOGY [employer]ER: Hysterectomy Cardiovascular: CABG, Coronary stent, Other Neuro: Other HEENT: Cataracts Derm: Skin cancer surgery - Present Medications Home Medications: Ambulatory Orders Medication Instructions Recorded Confirmed Cetirizine [ZyrTEC] 10 mg PO DAILY 12/19/12 06/25/21 Cholecalciferol (Vitamin D3) 1,000 unit PO DAILY 12/19/12 06/25/21 [Vitamin D] Pregabalin [Lyrica] 100 mg PO BID 12/19/12 06/25/21 Ascorbic Acid [Vitamin C] 1,000 mg PO DAILY 06/21/13 06/25/21 Calcium Crb,Cit/D3/Min34/Edi 1 each PO DAILY 06/21/13 06/25/21 [Citracal + Bone Density Tablet] Multivitamin [Multivitamins] 1 each PO DAILY 06/21/13 06/25/21 Atorvastatin Calcium [Lipitor] 40 mg PO DAILY 12/20/13 06/25/21 Krill Oil 500 mg PO DAILY 12/20/13 06/25/21 Solifenacin Succinate [Vesicare] 10 mg PO DAILY 12/20/13 06/25/21 Acetaminophen [Tylenol Extra 1 tab PO PRN PRN 06/23/17 06/25/21 Strength] Aspirin [Aspirin EC] 2 tab PO DAILY 06/23/17 06/25/21 Fluticasone [Flonase] 1 spray INH BID 06/23/17 06/25/21 Metoprolol Succinate [Toprol Xl] 1 tab PO DAILY 06/23/17 06/25/21 Metronidazole [Metrocream] 0 gm TOP BID 06/23/17 06/25/21 Pantoprazole Sodium 1 mg PO DAILY 06/23/17 06/25/21 Psyllium Seed (with Sugar) 2 tsp PO DAILY 06/23/17 06/25/21 [Metamucil Powder] Chlorthalidone 1 tab PO DAILY 12/01/18 06/25/21 Isosorbide Mononitrate ER [Imdur] 30 mg PO DAILY 12/01/18 06/25/21 Losartan [Cozaar] 50 mg PO DAILY 12/01/18 06/25/21 HYDROcod/ACETAM 5/325 [Walker 5/325] 1 - 2 tablet PO Q6H PRN 06/25/21 06/25/21 Ibandronate [Boniva] 1 tab PO DAILY 06/25/21 06/25/21 Venlafaxine ER [Effexor ER] 75 mg PO DAILY 06/25/21 06/25/21 Diclofenac Sodium 1% Gel [Voltaren See Rx Instructions .ROUTE .COMPLEX 05/27/22 05/27/22 Gel] Fluticasone [Flonase] See Rx Instructions .ROUTE .COMPLEX 05/27/22 05/27/22 Hair Skin And Nails 05/27/22 Olopatadine HCl See Rx Instructions .ROUTE .COMPLEX 05/27/22 05/27/22 Psyllium [Metamucil] See Rx Instructions .ROUTE .COMPLEX 05/27/22 05/27/22 Doxycycline [Vibramycin] 100 mg PO BID #20 tablet 06/08/22 - Allergies Allergies/Adverse Reactions: Allergies Allergy/AdvReac Type Severity Reaction Status Date / Time codeine [Codeine] AdvReac Nausea Verified 06/08/22 12:34 hydromorphone HCl * AdvReac Nausea Verified 06/08/22 12:34 [From Dilaudid] - Social History Does the pt smoke?: No Smoking Status: Never smoker Does the pt drink ETOH?: No Does the pt have substance abuse?: No - Immunizations Immunizations are current?: Yes - POLST Patient has POLST: No PD ED PE NORMAL - Vitals Vital signs reviewed: Yes - General General: Alert and oriented X 3, No acute distress, Well developed/nourished PD ED PE EXPANDED - Extremities [place] LE visual: 1 - rash (confluent erythema with faint margination, warm to touch (increased compared to surrounding and other leg).) 2 - swelling Results - Vitals Vitals: Oxygen O2 Source Room air PD MEDICAL DECISION MAKING - ED course Complexity details: considered differential, d/w patient, d/w family ED course: presentation is c/w LLE cellulitis and doxycycline given and prescribed. Ultrasound is not available at this hour; DVT is less likely but reasonably on differential diagnosis and thus I recommended she return for ultrasound later today when available. Departure - Departure Disposition: 01 Home, Self Care Clinical Impression: Cellulitis Condition: Good Instructions: ED Infec Skin Cellulitis Prescriptions: Doxycycline [Vibramycin] 100 mg PO BID #20 tablet Comments: An antibiotic is being prescribed due to suspected cellulitis (skin infection). The first dose was given in the ER and a prescription for a ten-day course has been electronically submitted to [facility] in [place]. As we discussed, I would also consider a blood clot in the veins of the leg as a possible cause of your symptoms. This can be diagnosed on ultrasound but, unfortunately, ultrasound is not available until later this morning. I would consider blood clot a less likely diagnosis than infection (cellulitis), but I would recommend returning to the ER after seven AM today for ultrasound to evalu ate for possible blood clot. Discharge Date/Time: 06/08/22 04:40
[2022-06-08 04:02] VITALS: BP 135/68
[2022-06-08] MEDS ORDERED: DOXYCYCLINE 100 MG TABLET PO STA (04:17)
== END 2022-06-08 04:40 | disposition home or self-care (01) ==
LOC: ED 00:30
DX: L03.116 Cellulitis of left lower limb (principal)
CPT/HCPCS: 99282; A9270

== ENCOUNTER 2022-06-08 12:27 | Emergency (ER) | payer MEDICARE, OTHER ==
[2022-06-08 12:37] VITALS: BP 120/50
--- NOTE | 2022-06-08 13:43 | Ultrasound Report ---
PROCEDURE: Duplex Ext Veins Left INDICATIONS: pain/swelling TECHNIQUE: Real-time imaging, as well as color and pulse Doppler interrogation, were performed of the lower extr emity deep veins from the inguinal ligament to the popliteal fossa. COMPARISON: None. FINDINGS: The deep veins are normally compressible, and free of intraluminal thrombus. Color and pu lse Doppler demonstrate normal phasic intraluminal flow. There is normal augmentation response to di stal compression maneuver. IMPRESSION: Negative duplex left lower extremity venous ultrasound for DVT. Reviewed by: Oleksandr Rogers MD on 06/08/2022 1:41 PM PST Approved by: Oleksandr Rogers MD on 06/08/2022 1:41 PM PST Station ID: [id number]
--- NOTE | 2022-06-08 14:52 | ED Physician Documentation ---
History of Present Illness - Stated complaint Stated Complaint: LEFT SWOLLEN LEG - Chief complaint Chief Complaint: Ext Problem - History obtained from History obtained from: Patient - History of Present Illness Pain level max: 7 Pain level now: 5 - Additonal information Additional information: Patient is an 82-year-old female was seen here last night for left lower extremity cellulitis. Started on antibiotics. She states the redness is decreasing and pain is Decreasing as well. No fevers. No chills. She was told to return today for an ultrasound of her leg to exclude DVT. Patient has no new symptoms. Antibiotics are making the leg better. Nothing makes it worse. 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: Hysterectomy Cardiovascular: CABG, Coronary stent, Other Neuro: Other HEENT: Cataracts Derm: Skin cancer surgery - Present Medications Home Medications: Ambulatory Orders Medication Instructions Recorded Confirmed Cetirizine [ZyrTEC] 10 mg PO DAILY 12/19/12 06/25/21 Cholecalciferol (Vitamin D3) 1,000 unit PO DAILY 12/19/12 06/25/21 [Vitamin D] Pregabalin [Lyrica] 100 mg PO BID 12/19/12 06/25/21 Ascorbic Acid [Vitamin C] 1,000 mg PO DAILY 06/21/13 06/25/21 Calcium Crb,Cit/D3/Min34/Edi 1 each PO DAILY 06/21/13 06/25/21 [Citracal + Bone Density Tablet] Multivitamin [Multivitamins] 1 each PO DAILY 06/21/13 06/25/21 Atorvastatin Calcium [Lipitor] 40 mg PO DAILY 12/20/13 06/25/21 Krill Oil 500 mg PO DAILY 12/20/13 06/25/21 Solifenacin Succinate [Vesicare] 10 mg PO DAILY 12/20/13 06/25/21 Acetaminophen [Tylenol Extra 1 tab PO PRN PRN 06/23/17 06/25/21 Strength] Aspirin [Aspirin EC] 2 tab PO DAILY 06/23/17 06/25/21 Fluticasone [Flonase] 1 spray INH BID 06/23/17 06/25/21 Metoprolol Succinate [Toprol Xl] 1 tab PO DAILY 06/23/17 06/25/21 Metronidazole [Metrocream] 0 gm TOP BID 06/23/17 06/25/21 Pantoprazole Sodium 1 mg PO DAILY 06/23/17 06/25/21 Psyllium Seed (with Sugar) 2 tsp PO DAILY 06/23/17 06/25/21 [Metamucil Powder] Chlorthalidone 1 tab PO DAILY 12/01/18 06/25/21 Isosorbide Mononitrate ER [Imdur] 30 mg PO DAILY 12/01/18 06/25/21 Losartan [Cozaar] 50 mg PO DAILY 12/01/18 06/25/21 HYDROcod/ACETAM 5/325 [[place] 5/325] 1 - 2 tablet PO Q6H PRN 06/25/21 06/25/21 Ibandronate [Boniva] 1 tab PO DAILY 06/25/21 06/25/21 Venlafaxine ER [Effexor ER] 75 mg PO DAILY 06/25/21 06/25/21 Diclofenac Sodium 1% Gel [Voltaren See Rx Instructions .ROUTE .COMPLEX 05/27/22 05/27/22 Gel] Fluticasone [Flonase] See Rx Instructions .ROUTE .COMPLEX 05/27/22 05/27/22 Hair Skin And Nails 05/27/22 Olopatadine HCl See Rx Instructions .ROUTE .COMPLEX 05/27/22 05/27/22 Psyllium [Metamucil] See Rx Instructions .ROUTE .COMPLEX 05/27/22 05/27/22 Doxycycline [Vibramycin] 100 mg PO BID #20 tablet 06/08/22 - Allergies Allergies/Adverse Reactions: Allergies Allergy/AdvReac Type Severity Reaction Status Date / Time codeine [Codeine] AdvReac Nausea Verified 06/08/22 12:34 hydromorphone HCl * AdvReac Nausea Verified 06/08/22 12:34 [From Dilaudid] - Social History Does the pt smoke?: No Smoking Status: Never smoker Does the pt drink ETOH?: No Does the pt have substance abuse?: No - Immunizations Immunizations are current?: Yes - POLST Patient has POLST: No PD ED PE NORMAL - Vitals Vital signs reviewed: Yes - General General: Alert and oriented X 3, No acute distress, Well developed/nourished - HEENT HEENT: Moist mucous membranes - Respiratory Respiratory: No respiratory distress - Derm Derm: Warm and dry - Extremities Extremities: Other (Patient with erythema to the left leg, mid tibia down to the foot. Mild swelling. Neurovascular intact. No open wound.) - Neuro Neuro: Alert and oriented X 3 - Psych Psych: Normal mood, Normal affect Results - Vitals Vitals: Vital Signs - 24 hr 06/08/22 12:34 Temperature 36.5 C Heart Rate 65 Respiratory 16 Rate Blood Pressure 120/50 L O2 Saturation 95 Oxygen O2 Source Room air - Rads (name of study) Duplex ultrasound left lower extremity Radiology: Final report received, EMP read contemporaneously, See rad report (No DVT) PD MEDICAL DECISION MAKING - ED course Complexity details: considered differential, d/w patient ED course: 82-year-old female brought back today for an ultrasound. No DVT on ultrasound. She states the erythema is improving on the antibiotics. We will continue her antibiotics. We will have her follow-up with her doctor for further care. Patient counseled regarding signs and symptoms for which I believe and urgent re-evaluation would be necessary. Patient with good understanding of and agreement to plan and is comfortable going home at this time This document was made in part using voice recognition software. While efforts are made to proofread this document, sound alike and grammatical errors may occur. Departure - Departure Disposition: 01 Home, Self Care Clinical Impression: Cellulitis Qualifiers: Site of cellulitis: extremity Site of cellulitis of extremity: lower extremity Laterality: left Qualified Code(s): L03.116 - Cellulitis of left lower limb Condition: Good Instructions: ED Infec Skin Cellulitis Follow-Up: your,doctor in 3-5 days for wound check [Other] Comments: Continue the antibiotics at home as prescribed last night. Her ultrasound does not show any evidence of a blood clot today. Please follow-up with your doctor for further care. Return if you worsen.
== END 2022-06-08 15:14 | disposition home or self-care (01) ==
LOC: ED 12:27
DX: L03.116 Cellulitis of left lower limb (principal)
CPT/HCPCS: 93971; 99282; A9270

== ENCOUNTER 2022-06-10 08:00 | Outpatient (CLI) | payer MEDICARE, OTHER | END 2022-06-10 23:59 | disposition home or self-care (01) | LOC: LAB.N 08:00 | PROVIDERS: ATTEND Family Medicine | DX: L03.116 Cellulitis of left lower limb (principal) | CPT/HCPCS: 87070; 87077; 87181; 87205 ==

== ENCOUNTER 2022-06-17 09:40 | Outpatient (CLI) | payer MEDICARE, OTHER ==
--- NOTE | 2022-06-18 10:58 | Mammography Report ---
BILATERAL DIGITAL SCREENING MAMMOGRAM 3D/2D: 06/17/2022 CLINICAL: Routine screening. Personal history of right breast cancer. Comparison is made to exams dated: 06/16/2021 mammogram, 06/14/2020 mammogram, 05/11/2019 mammogram, 05/05/2018 mammogram, 05/15/2017 mammogram, and 03/10/2016 mammogram - [facility]. There are scattered areas of fibroglandular density in both breasts (category b / 25%-50% glandular t issue). There are benign post operative findings in the right breast. No significant masses, calcifications, or other findings are seen in either breast. There has been no significant interval change. IMPRESSION: BENIGN There is no mammographic evidence of malignancy. A 1 year screening mammogram is recommended. This exam was interpreted at Station ID: [id number]. NOTE: For mammograms, a report in lay terms will be sent to the patient. Approximately 15% of breast malignancies will not be visualized mammographically. In the management of a palpable breast mass, a negative mammogram must not discourage biopsy of a clinically suspicious lesion. Electronically Signed By: Jomar bang/[place]:06/17/2022 18:15:04 ACR BI-RADS Category 2: Benign Finding(s) 3342F PARENCHYMAL PATTERN: (A) - The breast(s) demonstrate(s) scattered fibroglandular densities. BI-RADS CATEGORY: (2) - 2 RECOMMENDATION: (ANNUAL) - Recommend routine annual screening mammography. [id number] 1 year screening LATERALITY: (B)
== END 2022-06-17 09:41 | disposition home or self-care (01) ==
LOC: DI 09:40
DX: Z12.31 Encounter for screening mammogram for malignant neoplasm of breast (principal); Z85.3 Personal history of malignant neoplasm of breast